=== PATIENT | male | born 1960 | race Caucasian/White ===

== ENCOUNTER 2024-09-06 04:19 | Day surgery (SDC) | payer OTHER ==
[2024-09-06] VITALS (254 sets, daily range): BP systolic 91–184; BP diastolic 42–102
[~2024-09-06] VITALS: Ht 172.7 cm; Wt 86.4 kg
[2024-09-06] MEDS ORDERED: PANTOPRAZOLE SODIUM Sesquihydr 40 MG/TAB PO PRN (07:30)
[2024-09-06] MEDS ORDERED: cloNIDine HCL 0.1 MG/TAB PO PRN (07:30)
[2024-09-06] MEDS ORDERED: LACTATED RINGER'S 1,000 ML IV PRN ×2 (07:30→09:40)
[2024-09-06] MEDS ORDERED: diazePAM 5 MG/TAB PO PRN ×2 (07:30→08:30)
[2024-09-06] MEDS ORDERED: ALBUTEROL SULFATE 2.5 MG VIAL IN PRN (07:30)
[2024-09-06] MEDS ORDERED: SCOPOLAMINE 1.5 MG DIS TD PRN (07:30)
[2024-09-06] MEDS ORDERED: CYANOCOBALAMIN 500 MCG/TAB ( B12) PO PRN (07:30)
[2024-09-06] MEDS ORDERED: SODIUM CHLORIDE 0.9% 1,000 ML IV PRN ×3 (07:30→19:00)
[2024-09-06] MEDS ORDERED: FAMOTIDINE 20 MG/TAB PO PRN (07:30)
[2024-09-06] MEDS ORDERED: ASCORBIC ACID 4,000 MG in SODIUM CHLORIDE 0.9% 1,000 ML IV SCH (08:00)
[2024-09-06 09:12] LABS: BASO% 0.4 % (0-3); EOS% 3.6 % (0-8); HEMATOCRIT 41.7 % (39.0-50.0); HEMOGLOBIN 13.8 g/dl (14.0-18.0); IMMATURE GRANULOCYTES 0.4 % (0.0-5.0); LYMPH% 26.1 % (15-41); MEAN CELL VOLUME 90.5 fL CALC (80.0-100.0); MEAN CORPUSCULAR HGB 29.9 pG CALC (26.0-32.0); MEAN CORPUSCULAR HGB CONC 33.1 g/dL CAL (32.0-36.0); MONO% 5.9 % (2-13); NEUT# 5.71 thou/uL (1.82-7.42); NEUT% 63.6 % (42-76); RED BLOOD COUNT 4.61 mill/uL (4.70-6.10); RED CELL DISTRI WIDTH 12.5 % (11.5-15.5)
[2024-09-06 09:21] LABS: BILIRUBIN, TOTAL 0.7 mg/dL (0.2-1.3); CREATININE 0.8 mg/dL (0.7-1.3); TOTAL PROTEIN 6.7 g/dL (6.3-8.2)
[2024-09-06 09:29] LABS: POTASSIUM 5.2 mmol/l (3.5-5.1)
[2024-09-06] MEDS ORDERED: LIDOCAINE HCL 1% (10MG/ML) 100 MG/10 ML MDV IV PRN (09:40)
[2024-09-06] MEDS ORDERED: ROCURONIUM BROMIDE 10 MG/ML 5 ML VIAL IV PRN (09:40)
[2024-09-06] MEDS ORDERED: SUCCINYLCHOLINE CHLORIDE 20 MG/ML 10ML VIAL IV PRN (09:40)
[2024-09-06] MEDS ORDERED: PROPOFOL 100 ML IV PRN (09:40)
[2024-09-06] MEDS ORDERED: diazePAM 5 MG/TAB VT PRN (09:40)
[2024-09-06] MEDS ORDERED: MAGNESIUM SULFATE HEPTAHYDRATE 100 ML IV PRN (09:40)
[2024-09-06] MEDS ORDERED: NALTREXONE HCL 50 MG/TAB VT PRN (09:40)
[2024-09-06] MEDS ORDERED: PROPOFOL 10 MG/ML 100ML VIAL IV PRN (09:40)
[2024-09-06] MEDS ORDERED: cloNIDine HCL 0.1 MG/TAB VT PRN (09:40)
[2024-09-06] MEDS ORDERED: OCTREOTIDE ACETATE 100 MCG/VIAL SDV SC PRN (09:40)
[2024-09-06] MEDS ORDERED: ONDANSETRON HCl 4 MG/2 ML SDV IV PRN ×3 (09:40→19:00)
[2024-09-06] MEDS ORDERED: cloNIDine HYDROCHLORIDE 100 MCG/ML 10 ML INJ IV PRN (09:40)
[2024-09-06] MEDS ORDERED: STERILE WATER FOR IRRIGATION 1,000 ML BTL IR PRN (09:40)
[2024-09-06] MEDS ORDERED: MIDAZOLAM HCL 2 MG/2 ML VIAL IV PRN ×3 (09:40→17:00)
[2024-09-06] MEDS ORDERED: LIDOCAINE HCL 1% (10MG/ML) 100 MG/10 ML MDV VT PRN ×2 (09:40)
[2024-09-06] MEDS ORDERED: DiphenhydrAMINE HCL 50 MG/ML SDV IV PRN (09:40)
[2024-09-06] MEDS ORDERED: THIAMINE HCL 100 MG/ML 2ML VIAL IV PRN (09:40)
[2024-09-06] MEDS ORDERED: INSULIN REGULAR (HUMAN) 100 UNIT/ML INJ IV ONE (11:20)
[2024-09-06] MEDS ORDERED: DEXMEDETOMIDINE HCL IN SODIUM 100 ML IV PRN (13:00)
[2024-09-06] MEDS ORDERED: KLONOPIN2 MG PO (13:13)
[2024-09-06] MEDS ORDERED: CLONIDINE0.1 MG PO (13:13)
[2024-09-06] MEDS ORDERED: NALTREXONE50 MG PO (13:13)
[2024-09-06] MEDS ORDERED: hydrALAZINE HCL 20 MG/ML VIAL(1 ML) IV ONE (14:15)
[2024-09-06 14:51] LABS: POTASSIUM 4.4 mmol/l (3.5-5.1)
[2024-09-06] MEDS ORDERED: METOPROLOL TARTRATE 5 MG/5 ML VIAL IV ONE (15:35)
[2024-09-06] MEDS ORDERED: KETOROLAC TROMETHAMINE 30 MG/ML SDV IV PRN (19:00)
[2024-09-06] MEDS ORDERED: ACETAMINOPHEN 500 MG TAB PO PRN (19:00)
[2024-09-06] MEDS ORDERED: ACETAMINOPHEN 1,000 MG/100 ML VIAL IV PRN (19:00)
[2024-09-06] MEDS ORDERED: PROMETHAZINE HCL 25 MG in SODIUM CHLORIDE 0.9% 50 ML IV PRN (19:00)
[2024-09-06] MEDS ORDERED: PROMETHAZINE HCL 12.5 MG in SODIUM CHLORIDE 0.9% 50 ML IV PRN (19:00)
[2024-09-06] MEDS ORDERED: HALOPERIDOL LACTATE 5 MG/ML SDV IV PRN (19:00)
[2024-09-06] MEDS ORDERED: PATIENT' OWN MED CONTROLLED 1 EA DOSE IV PRN (21:00)
[2024-09-06] MEDS ORDERED: cloNIDine HCL 0.1 MG/TAB PO SCH (23:00)
[2024-09-06] MEDS ORDERED: clonazePAM 1 MG/TAB PO PRN (23:00)
[2024-09-07 03:06] VITALS: BP 138/80
[2024-09-07] MEDS ORDERED: cloNIDine HCL 0.1 MG/TAB PO PRN (04:00)
[2024-09-07] MEDS ORDERED: clonazePAM 1 MG/TAB PO PRN ×3 (04:00→23:00)
[2024-09-07] MEDS ORDERED: NALTREXONE HCL 50 MG/TAB PO SCH (04:00)
[2024-09-07 06:15] LABS: BASO% 0.1 % (0-3); HEMATOCRIT 46.8 % (39.0-50.0); IMMATURE GRANULOCYTES 0.8 % (0.0-5.0); LYMPH% 6.3 % (15-41); MEAN CELL VOLUME 89.7 fL CALC (80.0-100.0); MEAN CORPUSCULAR HGB 30.7 pG CALC (26.0-32.0); MEAN CORPUSCULAR HGB CONC 34.2 g/dL CAL (32.0-36.0); MONO% 2.1 % (2-13); NEUT# 13.19 thou/uL (1.82-7.42); NEUT% 90.7 % (42-76); RED BLOOD COUNT 5.22 mill/uL (4.70-6.10); RED CELL DISTRI WIDTH 12.7 % (11.5-15.5)
[2024-09-07 06:32] LABS: ALBUMIN 4.8 g/dL (3.2-5.0); CREATININE 1.1 mg/dL (0.7-1.3); MAGNESIUM 2.4 mg/dL (1.6-2.3); POTASSIUM 4.7 mmol/l (3.5-5.1); TOTAL PROTEIN 7.6 g/dL (6.3-8.2)
[2024-09-07 06:38] VITALS: BP 172/54
[2024-09-07 07:33] LABS: BILIRUBIN, TOTAL 1.4 mg/dL (0.2-1.3)
[2024-09-07] MEDS ORDERED: ACETAMINOPHEN 325 MG/TAB PO SCH (08:00)
[2024-09-07] MEDS ORDERED: PANTOPRAZOLE SODIUM Sesquihydr 40 MG/TAB PO SCH (08:00)
[2024-09-07] MEDS ORDERED: cloNIDine HCL 0.1 MG/TAB PO SCH ×2 (08:00→23:00)
[2024-09-07] MEDS ORDERED: Cholecalciferol 2,000 UNIT/TAB PO PRN (09:00)
[2024-09-07] MEDS ORDERED: MAGNESIUM OXIDE 400 MG/TAB PO PRN (09:00)
[2024-09-07] MEDS ORDERED: ACETAMINOPHEN 500 MG TAB PO PRN (09:00)
[2024-09-07] MEDS ORDERED: [UNRECOGNIZED DRUG - OTHER] IV PRN (14:30)
[2024-09-07] MEDS ORDERED: FOLIC ACID IV PRN (14:30)
[2024-09-07] MEDS ORDERED: MULTIPLE VITAMIN THIAMINE HCL IV PRN (14:30)
[2024-09-07 21:18] VITALS: BP 196/100
[2024-09-08] VITALS (8 sets, daily range): BP systolic 109–196; BP diastolic 66–109
[2024-09-08] MEDS ORDERED: cloNIDine HCL 0.1 MG/TAB PO PRN (04:00)
[2024-09-08] MEDS ORDERED: clonazePAM 1 MG/TAB PO PRN ×2 (04:00→23:00)
[2024-09-08] MEDS ORDERED: NALTREXONE HCL 50 MG/TAB PO SCH (04:00)
[2024-09-08] MEDS ORDERED: LABETALOL HCL 20 MG/ 4 ML CARTRG IV PRN (04:15)
[2024-09-08 06:37] LABS: BASO% 0.2 % (0-3); HEMATOCRIT 47.7 % (39.0-50.0); HEMOGLOBIN 15.8 g/dl (14.0-18.0); IMMATURE GRANULOCYTES 0.9 % (0.0-5.0); LYMPH% 5.5 % (15-41); MEAN CELL VOLUME 91.4 fL CALC (80.0-100.0); MEAN CORPUSCULAR HGB 30.3 pG CALC (26.0-32.0); MEAN CORPUSCULAR HGB CONC 33.1 g/dL CAL (32.0-36.0); MONO% 7.7 % (2-13); NEUT# 19.69 thou/uL (1.82-7.42); NEUT% 85.7 % (42-76); RED BLOOD COUNT 5.22 mill/uL (4.70-6.10); RED CELL DISTRI WIDTH 13.6 % (11.5-15.5)
[2024-09-08 06:50] LABS: ALBUMIN 4.5 g/dL (3.2-5.0); BILIRUBIN, TOTAL 1.4 mg/dL (0.2-1.3); CREATININE 1.2 mg/dL (0.7-1.3); MAGNESIUM 2.6 mg/dL (1.6-2.3); TOTAL PROTEIN 7.3 g/dL (6.3-8.2)
[2024-09-08] MEDS ORDERED: DEXTROSE 250 ML IV PRN (08:15)
[2024-09-08] MEDS ORDERED: DEXTROSE 50% 50 ML/SYR IV PRN (08:15)
[2024-09-08] MEDS ORDERED: INSULIN LISPRO 100 UNITS/ML ML SC SCH ×3 (08:15→20:07)
[2024-09-08] MEDS ORDERED: hydrALAZINE HCL 20 MG/ML VIAL(1 ML) IV ONE (08:15)
[2024-09-08] MEDS ORDERED: CAFFEINE CITRATE 60 MG/3 ML IV ONE (08:45)
[2024-09-08] MEDS ORDERED: INSULIN REGULAR (HUMAN) 100 UNIT/ML INJ IV ONE ×2 (09:10→10:20)
[2024-09-08] MEDS ORDERED: LISINOPRIL 10 MG/TAB PO ONE (09:10)
[2024-09-08] MEDS ORDERED: SODIUM CHLORIDE 0.9% 1,000 ML IV ONE (10:49)
[2024-09-08] MEDS ORDERED: METFORMIN500 M2 PO (12:20)
[2024-09-08] MEDS ORDERED: LISINOP/HCTZ1 TAB PO (12:23)
[2024-09-08] MEDS ORDERED: INSULIN GLARGINE 100 UNITS/ML SC ONE (12:55)
[2024-09-08] MEDS ORDERED: DEXTROSE 5% w/NACL 0.45 1,000 ML IV PRN (12:55)
[2024-09-08] MEDS ORDERED: LACTATED RINGER'S 1,000 ML IV SCH (15:00)
[2024-09-08] MEDS ORDERED: SODIUM BICARBONATE 8.4% 50 ML/VIAL IV ONE (15:55)
[2024-09-08] MEDS ORDERED: FUROSEMIDE 40 MG/4 ML SDV IV ONE (17:05)
[2024-09-08] MEDS ORDERED: LORazepam 2 MG/ML IV PRN ×2 (19:00)
[2024-09-08] MEDS ORDERED: LACTATED RINGER'S 1,000 ML IV PRN (19:00)
[2024-09-08 19:20] LABS: ALBUMIN 4.3 g/dL (3.2-5.0); BILIRUBIN, TOTAL 1.3 mg/dL (0.2-1.3); CREATININE 1.2 mg/dL (0.7-1.3); POTASSIUM 3.3 mmol/l (3.5-5.1); TOTAL PROTEIN 7.6 g/dL (6.3-8.2)
[2024-09-08] MEDS ORDERED: POTASSIUM CHLORIDE 20 MEQ/TAB PO SCH (20:06)
[2024-09-08] MEDS ORDERED: cloNIDine HCL 0.1 MG/TAB PO SCH (23:00)
[2024-09-09 00:10] VITALS: BP 134/84
[2024-09-09] MEDS ORDERED: INSULIN LISPRO 100 UNITS/ML ML SC SCH (01:00)
[2024-09-09] MEDS ORDERED: NALTREXONE HCL 50 MG/TAB PO SCH (04:00)
[2024-09-09] MEDS ORDERED: cloNIDine HCL 0.1 MG/TAB PO PRN (04:00)
[2024-09-09] MEDS ORDERED: clonazePAM 1 MG/TAB PO PRN (04:00)
[2024-09-09 04:06] VITALS: BP 149/87
[2024-09-09 05:55] LABS: ALBUMIN 3.7 g/dL (3.2-5.0); BILIRUBIN, TOTAL 1.5 mg/dL (0.2-1.3); MAGNESIUM 2.2 mg/dL (1.6-2.3); POTASSIUM 3.4 mmol/l (3.5-5.1); TOTAL PROTEIN 6.3 g/dL (6.3-8.2)
[2024-09-09 06:13] VITALS: BP 168/94
[2024-09-09] MEDS ORDERED: POTASSIUM CHLORIDE 20 MEQ/TAB PO SCH (08:00)
[2024-09-09 08:37] VITALS: BP 152/89
[2024-09-09] MEDS ORDERED: LISINOPRIL 20 MG/TAB PO SCH (09:00)
== END 2024-09-09 13:28 | disposition home or self-care (01) | DRG 897 ==
LOC: ANR 04:19 → MS2 04:22 → ANR 09:00 → MS2 19:00 → ANR 09-09 13:28
PROVIDERS: ATTEND Anesthesiology
DX: F11.20 Opioid dependence, uncomplicated (principal); E11.10 Type 2 diabetes mellitus with ketoacidosis without coma; E87.0 Hyperosmolality and hypernatremia; E87.5 Hyperkalemia; E86.0 Dehydration; E66.9 Obesity, unspecified; E87.8 Other disorders of electrolyte and fluid balance, not elsewhere classified; I10 Essential (primary) hypertension
CPT/HCPCS: J0360; J0706; J0735; J1100; J1200; J1815; J1940; J2354; J2405; J2704; J3411; J3475; J3490